=== PATIENT | male | born 1985 | race Caucasian/White ===

== ENCOUNTER 2021-02-24 13:24 | Outpatient (CLI) | payer OTHER, SELFPAY ==
--- NOTE | ~2021-02-24 | XR_ITS ---
EXAMINATION:XR cervical spine 4-5V DATE: 02/24/2021 13:47 INDICATION: Neck pain TECHNIQUE: AP, lateral, lateral swimmers and odontoid views of the cervical spine are provided. COMPARISON: None FINDINGS: There are 2 mm of anterolisthesis of C2 on C3. The odontoid is intact. No fracture is ident ified. The vertebral body heights are maintained. There is mild loss of intervertebral disc space hei ght at C4-5. Prevertebral soft tissues are normal. There is moderate uncovertebral joint osteoarthrit is on the right at C3-4. IMPRESSION: 1. Mild cervical spondylosis without acute findings. Reviewed, dictated and finalized at location B.
== END 2021-02-24 13:25 | disposition home or self-care (01) ==
LOC: ANHIMG 13:33
PROVIDERS: PCP Family Medicine; Visit Provider Family Medicine
DX: M47.812 Spondylosis without myelopathy or radiculopathy, cervical region (principal)
CPT/HCPCS: 72050

== ENCOUNTER 2021-03-16 07:50 | Outpatient (CLI) | payer OTHER, SELFPAY ==
--- NOTE | ~2021-03-16 | MR_ITS ---
EXAMINATION: MR cervical spine wo con EXAM DATE: 03/16/2021 08:38 INDICATION: Neck pain posteriorly. TECHNIQUE: Multi-sequential, multiplanar MR images of the cervical spine were obtained without contra st. Axial T2, axial T2 MERGE sequence. Sagittal T1, T2, T2 fat saturation images also obtained. Cor relation is made to cervical x-ray 02/24/2021. FINDINGS: The vertebral bodies are aligned in the AP dimension. Vertebral body and disc heights are well-maintained. The spinal cord signal intensity and intrinsic morphology is normal. Cervicomedullar y junction is normal in appearance. There are no suspicious marrow signal abnormalities. Paraspinal s oft tissue is unremarkable. Level by level evaluation: C2-C3: Disc does not extend beyond the endplate margin. Uncovertebral joint arthropathy: Mild left. Facet joint arthropathy: Minimal bilateral. Neural foraminal stenosis: No stenosis. Central canal stenosis: No stenosis. C3-C4: Disc does not extend beyond the endplate margin. Uncovertebral joint arthropathy: Minimal bilateral. Facet joint arthropathy: Minimal bilateral. Neural foraminal stenosis: No stenosis. Central canal stenosis: No stenosis. C4-C5: Disc does not extend beyond the endplate margin. Uncovertebral joint arthropathy: Minimal bilateral. Facet joint arthropathy: Mild bilateral. Neural foraminal stenosis: No stenosis. Central canal stenosis: No stenosis. C5-C6: There is a mild diffuse disc bulge. Uncovertebral joint arthropathy: Mild to moderate bilateral. Facet joint arthropathy: Mild to moderate bilateral. Neural foraminal stenosis: Mild to moderate left. Central canal stenosis: No stenosis. C6-C7: There is a mild diffuse disc bulge. Uncovertebral joint arthropathy: Mild to moderate bilateral. Facet joint arthropathy: Mild to moderate bilateral. Neural foraminal stenosis: No stenosis. Central canal stenosis: No stenosis. C7-T1: Disc does not extend beyond the endplate margin. Uncovertebral joint arthropathy: None. Facet joint arthropathy: Mild bilateral. Neural foraminal stenosis: No stenosis. Central canal stenosis: No stenosis. IMPRESSION: 1. Mild cervical spondylosis. Reviewed, dictated and finalized at location A.
== END 2021-03-16 07:51 | disposition home or self-care (01) ==
PROVIDERS: PCP Family Medicine; Visit Provider Physician Assistant Medical
DX: M47.813 Spondylosis without myelopathy or radiculopathy, cervicothoracic region (principal); M48.03 Spinal stenosis, cervicothoracic region
CPT/HCPCS: 72141

== ENCOUNTER 2021-12-12 11:15 | Emergency (ER) | payer OTHER, SELFPAY ==
[2021-12-12 11:56] VITALS: BP 173/118; PULSE 104; RESP 18; TEMP 36.9; O2SAT 100
--- NOTE | 2021-12-12 12:56 | ED.URI ---
HPI - URI/Sore Throat General Chief Complaint: Upper Respiratory Infection Stated Complaint: Congestion,Cough,Sinus Time Seen by Provider: 12/12/21 12:56 Source: patient, RN notes reviewed and old records reviewed Mode of arrival: ambulatory Limitations: no limitations History of Present Illness HPI Narrative: 36 [facility] with complaints of one week duration of cough, sinus congestion and drainage. Patient reports that originally he thought it was just allergies and has been taking Zyrtec D and Flonase for his symptoms without resolution. He reports past history of some sinus infections and states that when he bends over he has increase pressure in his face and also some forehead discomfort with ears feeling plugged. Patient reports cough at times with no shortness of breath or any chest pain or chest tightness. MD elicited complaint: cough, rhinorrhea, nasal congestion and sinus pain Onset (ago): week(s) (1) Treatments prior to arrival: other (Zyrtec D and flonase) Related Data Allergies Allergy/AdvReac Type Severity Reaction Status Date / Time No Known Allergies Allergy Verified 12/12/21 12:04 Review of Systems Review of Systems: CONSTITUTIONAL: Denies fever, chills, or sweats. EYES: Denies visual changes, redness, or discharge. ENT: Positive rhinorrhea, congestion, no sore throat, ears feel plugged, facial pressure CARDIOVASCULAR: Denies chest pain, palpitations, or edema. RESPIRATORY: Positive cough denies dyspnea. GASTROINTESTINAL: Denies abdominal pain, nausea, vomiting, or diarrhea. GENITOURINARY: Denies dysuria or hematuria. SKIN: Denies rash or itching. MUSCULOSKELETAL: Denies back pain, joint pain, or myalgia. NEUROLOGIC: Frontal headache, no numbness, or weakness. PSYCHIATRIC: Denies anxiety or depression. [facility] Surgical History Surgical History (Updated 12/12/21 @ 13:38 by Christiana Marie NP) History of back surgery Hx of tonsillectomy Social History Social History (Updated 12/12/21 @ 13:39 by Christiana Marie NP) Smoking packs per day: 0.5 Smoking cigarettes per day: 10.0 Smoking status: Current every day smoker Tobacco type: cigarettes Alcohol intake: current Alcohol use details: Social Substance use: never Substance use type: does not use Living arrangements: with family Gender identity (if verbalized by the patient): Male Comments At time of signature, agree with nursing past medical, surgical, social and family history. There is no relevant family history pertinent to the presenting complaint Exam Narrative: GENERAL: Well-appearing, well-nourished, and in no acute distress. HEAD: Normocephalic, atraumatic. EYES: PERRLA and EOMI. ENT: Nares red and inflamed with clear rhinorrhea no epistaxis. Mucous membranes moist. Facial sinus pressure increases when he bends over. TMs normal with dull light reflex. Throat red no lesions or exudates no tonsils present postnasal drainage noted NECK: Supple. No lymphadenopathy CHEST: Clear to auscultation. No respiratory distress. SaO2 100% dry cough no tachypnea HEART: Regular rate and rhythm. No murmur heard. Normal peripheral pulses. ABDOMEN: Soft, nontender, nondistended, normal active bowel sounds. EXTREMITIES: Normal range of motion. No edema. SKIN: Warm, dry, no rash. NEURO: No focal deficits. Alert and oriented x3. Course Course Level of Care: Express Care Visit Vital Signs Vital signs: Vital Signs Temperature 36.9 C 12/12/21 11:56 Pulse Rate 104 H 12/12/21 11:56 Respiratory Rate 18 12/12/21 11:56 Blood Pressure 173/118 H 12/12/21 11:56 Pulse Oximetry 100 12/12/21 11:56 Oxygen Delivery Room Air 12/12/21 11:56 Temperature 36.9 C 12/12/21 11:56 Pulse Rate 104 H 12/12/21 11:56 Respiratory Rate 18 12/12/21 11:56 Blood Pressure 150/118 H 12/12/21 13:18 Pulse Oximetry 100 12/12/21 11:56 Oxygen Delivery Room Air 12/12/21 11:56 MDM - URI/Sore Throat
[2021-12-12 13:18] VITALS: BP 150/118
== END 2021-12-12 13:18 | disposition home or self-care (01) ==
PROVIDERS: Emergency Provider Registered Nurse; PCP Family Medicine
DX: J32.9 Chronic sinusitis, unspecified (principal); Z20.822 Contact with and (suspected) exposure to COVID-19; F17.210 Nicotine dependence, cigarettes, uncomplicated
CPT/HCPCS: 87081; 87426; 87804; 87880; 99213; C9803; G0463

== ENCOUNTER 2022-11-07 12:29 | Emergency (ER) | payer OTHER, SELFPAY ==
[2022-11-07 12:50] VITALS: BP 188/115; PULSE 95; RESP 18; TEMP 36.7; O2SAT 99
--- NOTE | 2022-11-07 13:05 | ED.SKABFB ---
HPI - Skin/Abscess/Foreign Bdy General Chief complaint: Skin/Abscess/Foreign Body Stated complaint: Insect Bite on Back Time Seen by Provider: 11/07/22 12:58 Source: patient and RN notes reviewed Mode of arrival: ambulatory Limitations: no limitations History of Present Illness HPI narrative: Patient presents today complaining of a possible insect bit or tick embedded in his right mid back. He noted the area to be reddened and itchy 2 days ago, but was out in the [place] 4 days ago, so this was likely when the exposure occurred. He has not tried any OTC products for symptoms prior to arrival. Related Data Allergies Allergy/AdvReac Type Severity Reaction Status Date / Time No Known Allergies Allergy Verified 11/07/22 12:40 Review of Systems Review of Systems: CONSTITUTIONAL: Denies body aches, fever, chills, or sweats. EYES: Denies visual changes, redness, or discharge. ENT: Denies rhinorrhea, congestion, sore throat, or otalgia. CARDIOVASCULAR: Denies chest pain, palpitations, or edema. RESPIRATORY: Denies cough or dyspnea. GASTROINTESTINAL: Denies abdominal pain, nausea, vomiting, or diarrhea. GENITOURINARY: Denies dysuria or hematuria. SKIN: Denies rash, itching. + insect bite or tick in right mid back MUSCULOSKELETAL: Denies back pain, joint pain, or myalgia. NEUROLOGIC: Denies headache, numbness, tingling, or weakness. PSYCH: Denies depression or anxiety. [facility] Surgical History Surgical History History of back surgery Hx of tonsillectomy Social History Social History Smoking packs per day: 0.5 Smoking cigarettes per day: 10.0 Smoking status: Current every day smoker Tobacco type: cigarettes Alcohol intake: current Alcohol use details: Social Substance use: never Substance use type: does not use Living arrangements: with family Gender identity (if verbalized by the patient): Male Comments At time of signature, I have reviewed and agree with nursing past medical, surgical, social and family history unless otherwise noted. Please see nursing chart for further information. There is no relevant family history pertinent to the presenting complaint Exam Narrative: GENERAL: Well-appearing, well-nourished, and in no acute distress. HEAD: Normocephalic, atraumatic. EYES: EOMI. No redness or drainage. Conjunctivae normal. ENT: Mucous membranes pink and moist. NECK: Normal AROM. CHEST: No respiratory distress. EXTREMITIES: Normal range of motion. No edema. SKIN: Warm, dry, no rash. Capillary refill normal. Normal skin turgor. +embedded tick in right midback with ring of erythema and induration measuring 3.5cm round. NEURO: No focal deficits. Alert and oriented x3. Gait steady. PSYCH: Normal affect. No signs of depression or anxiety. Course Course Level of Care: Express Care Visit Vital Signs Vital signs: Vital Signs Temperature 98.1 F 11/07/22 12:50 Pulse Rate 95 11/07/22 12:50 Respiratory Rate 18 11/07/22 12:50 Blood Pressure 188/115 H 11/07/22 12:50 Pulse Oximetry 99 11/07/22 12:50 Oxygen Delivery Room Air 11/07/22 12:50 Temperature 98.1 F 11/07/22 12:50 Pulse Rate 95 11/07/22 12:50 Respiratory Rate 18 11/07/22 12:50 Blood Pressure 162/100 H 11/07/22 13:14 Pulse Oximetry 99 11/07/22 12:50 Oxygen Delivery Room Air 11/07/22 12:50 Reviewed. Pt has been instructed to follow up with his PCP regarding his elevated blood pressure today. Procedures Foreign Body Removal Foreign Body #1: Foreign Body Removal Date: 11/07/22 Foreign Body Removal Time: 14:42 Site: other (back) Description of foreign body: other (tick) Sedation/Analgesia: none Technique: manual removal Confirmed by:: direct visualization Complications: none Post-procedure exam: awake, alert
[2022-11-07 13:14] VITALS: BP 162/100
== END 2022-11-07 13:16 | disposition home or self-care (01) ==
PROVIDERS: Emergency Provider Nurse Practitioner
DX: S20.461A Insect bite (nonvenomous) of right back wall of thorax, initial encounter (principal); L03.312 Cellulitis of back [any part except buttock and flank]; F17.210 Nicotine dependence, cigarettes, uncomplicated
CPT/HCPCS: 99213; G0463